=== PATIENT | male | born 1980 | race Caucasian/White ===

== ENCOUNTER 2020-12-05 14:02 | Emergency (ER) | payer MEDICAID ==
[~2020-12-05] VITALS: Ht 185.4 cm; Wt 65.8 kg
[~2020-12-05 14:02] MED LIST: BACL20TA PO; DOC100C PO; GABA250S PO; NOR10T PO; OXY10CRT PO
[2020-12-05 16:49] LABS: Urine Bacteria NONE SEEN /hpf (None Seen); Urine Blood 3+ /uL (Negative); Urine WBC 1351 /hpf (0 - 3)
[2020-12-05] MEDS ORDERED: ONDANSETRON HCL 4 MG/2 ML VIAL IV ONE (17:45)
[2020-12-05] MEDS ORDERED: ONDANSETRON ODT 4 MG TAB PO ONE (18:00)
[2020-12-05] MEDS ORDERED: SODIUM CHLORIDE 0.9% 1,000 ML IV ONE (19:30)
[2020-12-05] MEDS ORDERED: cefTRIAXone 1GM/50ML D5W 50 ML IV ONE (19:30)
[2020-12-05 20:19] LABS: Basophils # (auto) 0 10 ^3/uL (0-0.2); Basophils % (auto) 0.2 % (0.0-2.0); Eosinophils # (auto) 0.1 10 ^3/uL (0-0.8); Eosinophils % (auto) 0.4 % (0.0-7.0); Hemoglobin 14.3 g/dL (13.5-17.5); Lymphocytes # (auto) 1.6 10 ^3/uL (0.4-5.4); Lymphocytes % (auto) 11.2 % (10.0-50.0); Mean Corpuscular Hemoglobin 29.1 pg (28.0-32.0); Mean Corpuscular Hgb Conc. 31.9 g/dL (32.0-36.0); Mean Corpuscular Volume 91.3 fL (80.0-100.0); Monocytes # (auto) 0.9 10 ^3/uL (0-1.3); Monocytes % (auto) 6.4 % (0.0-12.0); Neutrophils # (auto) 11.3 10 ^3/uL (1.6-8.6); Neutrophils % (auto) 81.8 % (37.0-80.0); Platelet Count (auto) 285 10^3/uL (140-450); Red Blood Cells 4.93 10^6/uL (4.5-5.90); Red Cell Distribution Width 15.1 % (11.8-14.3); White Blood Cell 13.9 10^3/uL (4.4-10.8)
[2020-12-05 20:33] LABS: Albumin 2.8 g/dL (3.4-5.0); Calcium 8.7 mg/dL (8.5-10.1); Potassium 4.5 mmol/L (3.5-5.1)
[2020-12-05 20:36] LABS: BUN/Creatinine Ratio 24.7; Bilirubin, Total 0.3 mg/dL (0.2-1.0); Total Protein 6.7 g/dL (6.4-8.2)
[2020-12-05 20:44] LABS: Lactic Acid w/Reflex 5.1 mmol/L (0.4-2.0)
[2020-12-06 02:00] VITALS: BP 99/61
== END 2020-12-06 05:56 | disposition home or self-care (01) ==
LOC: EDUNIT# 14:02 → ER 14:02 → EDBD 14:02 → ER 12-06 05:56
DX: N39.0 Urinary tract infection, site not specified (principal); R33.9 Retention of urine, unspecified; F17.210 Nicotine dependence, cigarettes, uncomplicated; Z79.899 Other long term (current) drug therapy; Z88.6 Allergy status to analgesic agent
CPT/HCPCS: 36415; 51702; 80053; 81001; 83605; 83735; 85025; 87086; 87088; 87186; 96365; 99285; J0696; J2405; J7030; Q0162